=== PATIENT | female | born 1995 | race Two or more races ===

== ENCOUNTER 2023-07-02 19:34 | Emergency (ER) | payer OTHER ==
[~2023-07-02] VITALS: Ht 162.6 cm; Wt 49.0 kg
[2023-07-02 19:54] VITALS: BP 104/68; PULSE 108; RESP 16; TEMP 98.2
[2023-07-02] MEDS ORDERED: LIDOCAINE 1% 500 MG/ 50 ML VIAL INJ ONE (20:45)
[2023-07-02] MEDS ORDERED: LIDOCAINE MPF 1% 10 ML ONE (20:45)
[2023-07-02] MEDS ORDERED: BACITRACIN OINT 500 UNITS/GM PKT TP ONE (20:55)
[2023-07-02] MEDS ORDERED: NAPR-54 PO (21:19)
[2023-07-02 21:20] VITALS: BP 104/68; PULSE 108; RESP 16; TEMP 98.2
== END 2023-07-02 21:20 | disposition home or self-care (01) ==
LOC: MED 19:34
DX: S60.112A Contusion of left thumb with damage to nail, initial encounter (principal); Z79.899 Other long term (current) drug therapy; W22.8XXA Striking against or struck by other objects, initial encounter; Y93.89 Activity, other specified; Y92.89 Other specified places as the place of occurrence of the external cause; Y99.8 Other external cause status
CPT/HCPCS: 11740; 99284; J2001